=== PATIENT | male | born 1980 | race Caucasian/White ===

== ENCOUNTER 2019-06-20 14:05 | Emergency (ER) | payer BC ==
[2019-06-20 15:15] LABS: ABS Eosinophils 0.1 10^3/ul (0-0.6); ABS Lymphocytes 1.8 10^3/ul (1.0-4.8); ABS Monocytes 0.5 10^3/ul (0-0.8); ABS Neutrophils 3.6 10^3/ul (1.5-7.7); Eosinophil % 2.1 %; Hematocrit 44 % (42-52); Hemoglobin 15.6 g/dL (14.0-18.0); Lymphocyte % 29.9 %; Mean Corpuscular HGB Conc 35 g/dL (31-36); Mean Corpuscular Hemoglobin 29 pg (27-31); Mean Corpuscular Volume 82 fL (80-94); Mean Platelet Volume 7.2 fL (7.4-10.4); Nucleated Red Blood Cells % 0.1; Platelet Count 280 10^3/uL (150-450); Red Blood Count 5.41 10^6 /uL (4.18-5.48); Red Cell Distribution Width 13 % (10-15); White Blood Count 6.1 10^3/uL (3.5-10.8)
[2019-06-20 15:31] LABS: Troponin I 0.01 ng/mL (<0.03)
[2019-06-20 15:33] LABS: Albumin 4.6 g/dL (3.2-5.2); Albumin/Globulin Ratio 1.4 (1-3); BUN/Creatinine Ratio 13.3 (8-20); Calcium 9.9 mg/dL (8.6-10.3); EGFR African American 115.5 (>60); EGFR Non-African American 95.5 (>60); Globulin 3.2 g/dL (2-4); Total Bilirubin 0.4 mg/dL (0.2-1.0); Total Protein 7.8 g/dL (6.4-8.9)
[2019-06-20 15:35] LABS: INR 1.08 (0.82-1.09)
[2019-06-20 16:18] LABS: Potassium 4.3 mmol/L (3.5-5.0)
--- NOTE | 2019-06-20 16:18 | ED ---
HPI Chest Pain - HPI Summary HPI Summary: 38 year old M presenting to [facility] accompanied by two companions with a chief complaint of chest pain that radiates to his back and congestion since 3 days ago, worse since today. The patient rates the pain 2/10 in severity. Symptoms aggravated by nothing. Symptoms alleviated by nothing. Patient denies any cough , rhinorrhea, fever, chills, or shortness of breath. He has been taking sudafed and ibuprofen 3 times per day for his symptoms. He denies any history of heart conditions, hypertension, diabetes, or a history of smoking. Medication list reviewed. Allergy list reviewed. - History of Current Complaint Chief Complaint: EDChestPainROMI Time Seen by Provider: 06/20/19 16:04 Hx Obtained From: Patient Onset/Duration: Started Days Ago Timing: Constant Current Severity: Mild Pain Intensity: 2 Pain Scale Used: 0-10 Numeric Chest Pain Radiates: Yes Chest Pain Radiates To:: Back Aggravating Factor(s): Nothing Alleviating Factor(s): Nothing Associated Signs and Symptoms: Positive: Nasal Congestion - Allergy/Home Medications Allergies/Adverse Reactions: Allergies Allergy/AdvReac Type Severity Reaction Status Date / Time No Known Allergies Allergy Verified 06/20/19 14:11 PMH/Surg Hx/FS Hx/Imm Hx Endocrine/Hematology History: Denies: Hx Diabetes Cardiovascular History: Denies: Hx Hypertension - Surgical History Surgical History: None Infectious Disease History: No Infectious Disease History: Denies: Traveled Outside the [place] in Last 30 Days - Family History Known Family History: Positive: Cardiac Disease, Hypertension, Diabetes - Social History Alcohol Use: None Substance Use Type: Reports: None Smoking Status (MU): Never Smoked Tobacco Review of Systems Negative: Fever, Chills Positive: Other - Congestion. Negative: Nasal Discharge Positive: Chest Pain Negative: Shortness Of Breath, Cough All Other Systems Reviewed And Are Negative: Yes Physical Exam - Summary Physical Exam Summary: Constitutional: Well-developed, Well-nourished, Alert. (-) Distressed Skin: Warm, Dry HENT: Normocephalic; Atraumatic Eyes: Conjunctiva normal Neck: Musculoskeletal ROM normal neck. (-) JVD, (-) Stridor, (-) Tracheal deviation Cardio: Rhythm regular, rate normal, Heart sounds normal; Intact distal pulses; The pedal pulses are 2+ and symmetric. Radial pulses are 2+ and symmetric. (-) Murmur Pulmonary/Chest wall: Effort normal. (-) Respiratory distress, (-) Wheezes, (-) Rales Abd: Soft, (-) tenderness, (-) Distension, (-) Guarding, (-) Rebound Musculoskeletal: (-) Edema Lymph: (-) Cervical adenopathy Neuro: Alert, Oriented x3 Psych: Mood and affect Normal Triage Information Reviewed: Yes Vital Signs On Initial Exam: Initial Vitals Temp Pulse Resp BP Pulse Ox 97.4 F 76 16 185/113 99 06/20/19 14:09 06/20/19 14:09 06/20/19 14:09 06/20/19 14:09 06/20/19 14:09 Vital Signs Reviewed: Yes Procedures - Sedation Patient Received Moderate/Deep Sedation with Procedure: No Diagnostics - Vital Signs Vital Signs Temp Pulse Resp BP Pulse Ox 06/20/19 15:58 98.6 F 77 16 166/106 99 06/20/19 14:42 98.3 F 77 16 178/105 100 06/20/19 14:09 97.4 F 76 16 185/113 99 - Laboratory Lab Results: Lab Results 06/20/19 06/20/19 06/20/19 Range/Units 15:02 15:02 15:02 WBC 6.1 (3.5-10.8) 10^3/uL RBC 5.41 (4.18-5.48) 10^6 /uL Hgb 15.6 (14.0-18.0) g/dL Hct 44 (42-52) % MCV 82 (80-94) fL MCH 29 (27-31) pg MCHC 35 (31-36) g/dL RDW 13 (10-15) % Plt Count 280 (150-450) 10^3/uL MPV 7.2 L (7.4-10.4) fL Neut % (Auto) 59.4 % Lymph % (Auto) 29.9 % [place] % (Auto) 8.2 % Eos % (Auto) 2.1 % Baso % (Auto) 0.4 % Absolute Neuts (auto) 3.6 (1.5-7.7) 10^3/ul Absolute Lymphs (auto) 1.8 (1.0-4.8) 10^3/ul Absolute Monos (auto) 0.5 (0-0.8) 10^3/ul Absolute Eos (auto) 0.1 (0-0.6) 10^3/ul Absolute Basos (auto) 0.0 (0-0.2) 10^3/ul Absolute Nucleated RBC 0.0 10^3/ul Nucleated RBC % 0.1 INR (Anticoag Therapy) 1.08 (0.82-1.09) Sodium 140 (135-145) mmol/L Potassium Pending Chloride 103 (101-111) mmol/L Carbon Dioxide 30 (22-32) mmol/L Anion Gap Pending BUN 12 (6-24) mg/dL Creatinine 0.90 (0.67-1.17) mg/dL Est GFR ( Amer) 115.5 (>60) Est GFR (Non-Af Amer) 95.5 (>60) BUN/Creatinine Ratio 13.3 (8-20) Glucose 89 (70-100) mg/dL Calcium 9.9 (8.6-10.3) mg/dL Total Bilirubin 0.40 (0.2-1.0) mg/dL AST Pending ALT 50 (7-52) U/L Alkaline Phosphatase 64 (34-104) U/L Troponin I 0.01 (<0.03) ng/mL Total Protein 7.8 (6.4-8.9) g/dL Albumin 4.6 (3.2-5.2) g/dL Globulin 3.2 (2-4) g/dL Albumin/Globulin Ratio 1.4 (1-3) Result Diagrams: 06/20/19 15:02 06/20/19 15:02 Lab Statement: Any lab studies that have been ordered have been reviewed, and results considered in the medical decision making process. - Radiology Chest x-ray Radiology Interpretation Completed By: Radiologist Summary of Radiographic Findings: HYPERINFLATION, CONSISTENT WITH COPD. NO ACTIVE CARDIOPULMONARY DISEASE. ED physician has reviewed this report. - EKG 14:06 Cardiac Rate: NL - 71 BPM EKG Rhythm: Sinus Rhythm Summary of EKG Findings: Normal EKG. Dr. Sanders has reviewed and interpreted this EKG. Chest Pain Course/Dx - Course Course Of Treatment: 38 year old M presenting to [facility] accompanied by two companions with a chief complaint of chest pain that radiates to his back and congestion since 3 days ago, worse since today. Physical exam findings: no significant findings. An EKG reveals sinus rhythm of 71 BPM, normal EKG. CXR reveals, per radiologist, HYPERINFLATION, CONSISTENT WITH COPD. NO ACTIVE CARDIOPULMONARY DISEASE. Laboratory results with no significant abnormalities except for an MPV of 7.2. Patient will be discharged with follow up from his PCP. The patient is agreeable with this plan. - Diagnoses Provider Diagnoses: Chest pain, Elevated blood pressure reading Discharge ED - Sign-Out/Discharge Documenting (check all that apply): Patient Departure - Discharge Plan Condition: Stable Disposition: HOME Patient Education Materials: Chest Pain (ED), Hypertension (ED) Referrals: Sonido Contreras MD [Primary Care Provider] - 06/23/19 Additional Instructions: Follow-up with your PCP on June 23, 2019. Return to the emergency department for changing or worsening symptoms. - Billing Disposition and Condition Condition: STABLE Disposition: Home - Attestation Statements Document Initiated by Scribe: Yes Documenting Scribe: Elli Mayen Provider For Whom Bonnie is Documenting (Include Credential): Gabriel Sanders DO Scribe Attestation: Elli Weinberg scribed for Gabriel Sanders DO on 06/20/19 at 1939. Scribe Documentation Reviewed: Yes Provider Attestation: The documentation as recorded by the Elli ybarra accurately reflects the service I personally performed and the decisions made by , Gabriel Sanders DO Status of Scribe Document: Viewed
[2019-06-20 17:39] VITALS: BP 174/146
== END 2019-06-20 17:00 | disposition home or self-care (01) ==
LOC: ED 14:05
DX: R07.9 Chest pain, unspecified (principal); R09.81 Nasal congestion; R03.0 Elevated blood-pressure reading, without diagnosis of hypertension
CPT/HCPCS: 36415; 71046; 80053; 84484; 85025; 85610; 93005; 99283